=== PATIENT | male | born 1985 | race Caucasian/White ===

== ENCOUNTER 2018-02-08 15:25 | Outpatient (CLI) | payer OTHER ==
[~2018-02-08 15:25] MED LIST: Gadobenate Dimeglumine 529 MG/1 ML (20ML VIAL) ONE
--- NOTE | 2018-02-14 15:45 | MRI ---
MRI LEFT TIBIA AND FIBULA PERFORMED WITH AND WITHOUT CONTRAST ENHANCEMENT: Date: 02/08/18 HISTORY: Bilateral tibia and fibula pain. Abnormal plain film examination. COMPARISON: Tibia and fibula films done of both lower extremities dated 02/06/18. FINDINGS: Within the distal tibial shaft, more along the lateral margin, causing some slight undulation of the cortex, is an approximately 3.4 cm predominantly intramedullary region which largely follows fat sign al and does not show any significant contrast enhancement. There is no adjacent periosteal change or any type of soft tissue mass associated with this. The marrow signal change in the remainder of the t ibia is normal. This is just above the level of the fused epiphyseal plate, more of a diametaphyseal type finding. No other significant findings noted. 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 I would recommend plain film follow-up to assess for stability in 3-6 months. If patient is having definite focal pain in this reg ion, then the workup would change and consideration for other imaging options such as CT or bone scan and orthopedic consultation would be required. Findings reviewed with Dr. Higuera, who agrees. POS: [facility]
== END 2018-02-08 15:26 | disposition home or self-care (01) ==
LOC: SCSMRI 15:25
PROVIDERS: ATTEND Family Medicine
DX: M79.662 Pain in left lower leg (principal); M89.9 Disorder of bone, unspecified
CPT/HCPCS: A9579